=== PATIENT | male | born 1955 | race Caucasian/White ===

== ENCOUNTER 2017-04-07 09:32 | Emergency (ER) | payer OTHER, BC ==
[~2017-04-07] VITALS: Ht 188 cm; Wt 96.0 kg
[~2017-04-07 09:32] MED LIST: ALEN70TA39 PO; ASPI325T PO; ATEN-104 PO; DOXA1 PO; FURO20TA PO; LANS30 PO; LEVO.075 PO; POTA-267 PO; PRAV80TA PO; PRED5PAK PO; SULF400T20 PO; [UNRECOGNIZED DRUG - OTHER] PO
[2017-04-07 09:36] VITALS: BP 170/95; PULSE 65; RESP 16; TEMP 98.3; O2SAT 98
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
[2017-04-07] MEDS ORDERED: FURO40TA PO (09:53)
[2017-04-07] MEDS ORDERED: MINO10TA PO (09:53)
[2017-04-07] MEDS ORDERED: POTA-243 PO (09:53)
[2017-04-07] MEDS ORDERED: ASPI325T PO (09:53)
[2017-04-07] MEDS ORDERED: DOXA1TAB43 PO (09:53)
[2017-04-07] MEDS ORDERED: LANS30CA PO (09:53)
[2017-04-07] MEDS ORDERED: PRAV80TA2 PO (09:53)
[2017-04-07] MEDS ORDERED: ATEN100T PO (09:53)
[2017-04-07] MEDS ORDERED: TACR1CAP PO (09:53)
[2017-04-07] MEDS ORDERED: PRED5TAB PO (09:53)
[2017-04-07] MEDS ORDERED: LOSA50TA PO (09:53)
[2017-04-07] MEDS ORDERED: SULF5SUS (09:53)
[2017-04-07] MEDS ORDERED: ALEN1TAB48 PO (09:53)
[2017-04-07] MEDS ORDERED: SYNT112T PO (09:53)
[2017-04-07] MEDS ORDERED: NORC5TAB PO (10:40)
[2017-04-07] MEDS ORDERED: CYCL1TAB29 PO (10:40)
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
== END 2017-04-07 11:42 | disposition home or self-care (01) ==
LOC: PHEFT 09:32
DX: S16.1XXA Strain of muscle, fascia and tendon at neck level, initial encounter (principal); S39.012A Strain of muscle, fascia and tendon of lower back, initial encounter; M47.812 Spondylosis without myelopathy or radiculopathy, cervical region; M47.816 Spondylosis without myelopathy or radiculopathy, lumbar region; V49.69XA Unspecified car occupant injured in collision with other motor vehicles in traffic accident, initial encounter; Y92.410 Unspecified street and highway as the place of occurrence of the external cause; Z94.0 Kidney transplant status
CPT/HCPCS: 72125; 72131; 99285; L0150